=== PATIENT | male | born 2000 | race Caucasian/White ===

== ENCOUNTER 2019-07-06 17:57 | Emergency (ER) | payer OTHER, BC ==
[~2019-07-06] VITALS: Ht 172 cm; Wt 61.0 kg
[2019-07-06] MEDS ORDERED: ADAL40PE5 (18:14)
[2019-07-06] MEDS ORDERED: TETANUS,DIPTH,PERTUSS P/F (BOOSTRIX) 0.5 ML VIAL IM ONE (18:15)
[2019-07-06] MEDS ORDERED: AMOX-358 PO (18:18)
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
[2019-07-06 18:54] VITALS: BP 107/70
== END 2019-07-06 18:54 | disposition home or self-care (01) ==
LOC: ER 18:00
DX: S51.851A Open bite of right forearm, initial encounter (principal); Z23 Encounter for immunization; Y04.1XXA Assault by human bite, initial encounter; Y92.59 Other trade areas as the place of occurrence of the external cause
CPT/HCPCS: 90715; 99284